=== PATIENT | female | born 1925 | race Caucasian/White ===

== ENCOUNTER 2016-09-04 09:31 | Inpatient (IN) | payer OTHER ==
[~2016-09-04] VITALS: Ht 170.2 cm; Wt 103.1 kg
[2016-09-04] MEDS ORDERED: COZAAR100 MG PO (14:30)
[2016-09-04] MEDS ORDERED: SINGULAIR10 MG PO (14:30)
[2016-09-04] MEDS ORDERED: IMDUR ER TAB 3030 MG PO (14:31)
[2016-09-04] MEDS ORDERED: TENORMIN 50 MG50 MG PO (14:34)
[2016-09-04] MEDS ORDERED: RELION NOV100 UNIT/1 SQ (14:51)
[2016-09-04] MEDS ORDERED: FUROSEMIDE20 MG PO (14:53)
[2016-09-04 15:58] LABS: RED BLOOD COUNT 4.3 M/UL (4.00-5.10); WHITE BLOOD COUNT 11.7 K/UL (4.5-11.0)
[2016-09-05 03:37] LABS: HEMOGLOBIN 13.9 gm/dl (12.3-15.3); RED BLOOD COUNT 4.01 M/UL (4.00-5.10)
[2016-09-05 03:38] LABS: WHITE BLOOD COUNT 18.7 K/UL (4.5-11.0)
[2016-09-05 16:41] LABS: HEMOGLOBIN 13.5 gm/dl (12.3-15.3); RED BLOOD COUNT 3.93 M/UL (4.00-5.10); WHITE BLOOD COUNT 17.9 K/UL (4.5-11.0)
[2016-09-06 04:54] LABS: HEMOGLOBIN 12.6 gm/dl (12.3-15.3); RED BLOOD COUNT 3.72 M/UL (4.00-5.10)
[2016-09-06 04:57] LABS: WHITE BLOOD COUNT 13.4 K/UL (4.5-11.0)
[2016-09-07 07:10] LABS: HEMOGLOBIN 13.2 gm/dl (12.3-15.3); RED BLOOD COUNT 3.84 M/UL (4.00-5.10); WHITE BLOOD COUNT 13.1 K/UL (4.5-11.0)
[2016-09-08 04:33] LABS: HEMOGLOBIN 14.2 gm/dl (12.3-15.3); RED BLOOD COUNT 4.11 M/UL (4.00-5.10); WHITE BLOOD COUNT 14.1 K/UL (4.5-11.0)
[2016-09-08 04:55] LABS: BUN/CREATININE RATIO 46 (0-10)
[2016-09-09 05:12] LABS: HEMOGLOBIN 14.4 gm/dl (12.3-15.3); RED BLOOD COUNT 4.17 M/UL (4.00-5.10); WHITE BLOOD COUNT 13.9 K/UL (4.5-11.0)
[2016-09-09 05:24] LABS: BUN/CREATININE RATIO 44 (0-10)
[2016-09-09] MEDS ORDERED: PROTONIX40 MG PO (13:18)
[2016-09-09] MEDS ORDERED: ZOFRAN4 MG PO (13:19)
[2016-09-09] MEDS ORDERED: ACETAMINOPHEN325 MG PO (13:20)
== END 2016-09-09 17:35 | DRG 682 ==
LOC: PROG CARE 09:31 → MED SURG 4 13:51 → PROG CARE 13:51 → MED SURG 4 09-07 13:20
PROVIDERS: Internal Medicine Nephrology; Physician Assistant; ADMIT Internal Medicine Infectious Disease
DX: N17.0 Acute kidney failure with tubular necrosis (principal); R57.1 Hypovolemic shock; I50.32 Chronic diastolic (congestive) heart failure; C78.7 Secondary malignant neoplasm of liver and intrahepatic bile duct; E87.1 Hypo-osmolality and hyponatremia; R18.8 Other ascites; L97.329 Non-pressure chronic ulcer of left ankle with unspecified severity; I48.1 Persistent atrial fibrillation; J98.11 Atelectasis; E87.2 Acidosis; I11.0 Hypertensive heart disease with heart failure; E86.0 Dehydration; K74.60 Unspecified cirrhosis of liver; J44.9 Chronic obstructive pulmonary disease, unspecified; J45.909 Unspecified asthma, uncomplicated; A08.4 Viral intestinal infection, unspecified; I87.2 Venous insufficiency (chronic) (peripheral); E11.9 Type 2 diabetes mellitus without complications; K80.20 Calculus of gallbladder without cholecystitis without obstruction; E78.5 Hyperlipidemia, unspecified; D72.829 Elevated white blood cell count, unspecified; E66.9 Obesity, unspecified; M17.12 Unilateral primary osteoarthritis, left knee; Z85.53 Personal history of malignant neoplasm of renal pelvis; Z68.35 Body mass index [BMI] 35.0-35.9, adult; Z79.4 Long term (current) use of insulin; Z79.899 Other long term (current) drug therapy; Z88.5 Allergy status to narcotic agent; Z88.0 Allergy status to penicillin; Z88.7 Allergy status to serum and vaccine; Z98.890 Other specified postprocedural states; Z80.0 Family history of malignant neoplasm of digestive organs; Z80.52 Family history of malignant neoplasm of bladder; Z82.49 Family history of ischemic heart disease and other diseases of the circulatory system; Z83.3 Family history of diabetes mellitus
CPT/HCPCS: 36415; 71010; 76705; 80053; 81001; 82105; 82550; 82553; 82800; 82962; 83036; 83735; 83880; 84484; 85025; 85027; 87040; 87086; 93005; 97110; 97116; J1650; J1956; J7030; J7042; P9047